=== PATIENT | male | born 1995 | race Caucasian/White ===

== ENCOUNTER 2018-12-09 22:28 | Emergency (ER) | payer BC ==
[~2018-12-09] VITALS: Ht 185.4 cm; Wt 68.9 kg
--- NOTE | 2018-12-09 22:45 | NUR ---
pt has a right lower leg small laceration from a box spring mattress overall appearances far denies pain at this time, ask if he uptodate with tetanus shot don't know
--- NOTE | 2018-12-09 23:00 | NUR ---
site was cleansed and dress by Edson MENESES pt ping well
[2018-12-09] MEDS ORDERED: NEOMY/BACITRA/POLYMYXIN B OINT UD PACKET TP ONE (23:16)
[2018-12-09] MEDS ORDERED: HYDROCODONE/APAP 5-325MG TABLET PO ONE (23:45)
--- NOTE | 2018-12-09 23:45 | NUR ---
pt was discharge to home with friend pt was given norco before discharge because he ccomplained of severe pain in his leg where laceration, denies allergy med teaching given didn't want to wait thirty minutes, discharge teaching and prescription teaching given voiced his understanding well, enc pt not to drive home
[2018-12-09] MEDS ORDERED: HYDROCODONE/APAP 5-325MG TABLET ONE (23:46)
[2018-12-10 00:01] VITALS: BP 136/72
== END 2018-12-09 23:45 | disposition home or self-care (01) ==
LOC: ER 22:28
DX: S91.011A Laceration without foreign body, right ankle, initial encounter (principal); X58.XXXA Exposure to other specified factors, initial encounter; Y93.89 Activity, other specified; Y92.89 Other specified places as the place of occurrence of the external cause; Y99.8 Other external cause status
CPT/HCPCS: A4217; A4663